=== PATIENT | male | born 1970 | race Caucasian/White ===

== ENCOUNTER 2016-11-27 08:38 | Emergency (ER) | payer OTHER ==
[2016-11-27 09:51] LABS: Basophils % (Auto) 0.3 % (0.0-1.8); Eosinophils % (Auto) 0.3 % (0.0-4.3); Hematocrit 41.1 % (35.5-45.6); Hemoglobin 13.7 gm/dl (11.8-15.2); Mean Corpuscular HGB Conc 33 % (32-34); Mean Corpuscular Hemoglobin 31 pg (28-32); Mean Corpuscular Volume 94 fl (84-94); Platelet Count 167 K/mm3 (140-440); Red Cell Distribution Width 13.2 % (13.2-15.2)
[2016-11-27 09:55] LABS: Alanine Aminotransferase 62 units/L (7-56); Albumin 4.6 g/dL (3.9-5); Albumin/Globulin Ratio 1.7 %; Alkaline Phosphatase 76 units/L (35-129); Anion Gap 18 mmol/L; BUN/Creatinine Ratio 18.57; Blood Urea Nitrogen 13 mg/dL (9-20); Calcium 8.8 mg/dL (8.4-10.2); Carbon Dioxide 24 mmol/L (22-30); Chloride 103.6 mmol/L (98-107); Glucose 143 mg/dL (75-100); Lipase 24 units/L (13-60); Potassium 3.7 mmol/L (3.6-5.0); Sodium 142 mmol/L (137-145); Total Protein 7.3 g/dL (6.3-8.2)
[2016-11-27] MEDS ORDERED: TORADOL IV ONE (10:02)
[2016-11-27] MEDS ORDERED: ZOFRAN IV ONE (10:02)
[2016-11-27] MEDS ORDERED: NACL 0.9% 1000 ML 1,000 ML IV ONE (10:02)
[2016-11-27] MEDS ORDERED: DILAUDID IV ONE (10:02)
--- NOTE | 2016-11-27 10:03 | Emergency Department Report ---
ED Abdominal Pain HPI - General Chief Complaint: Abdominal Pain Stated Complaint: POSS APPENDIX Time Seen by Provider: 11/27/16 10:01 Source: family Mode of arrival: Ambulatory Limitations: Language Barrier - History of Present Illness MD Complaint: abdominal pain, flank pain -: Sudden Location: RLQ Radiation: none Migration to: no migration Severity: moderate Severity scale (0 -10): 10 Quality: stabbing, aching Consistency: constant Improves With: nothing Worsens With: nothing Associated Symptoms: nausea. denies: vomiting, diarrhea, fever, chills, constipation, dysuria, hematemesis, hematochezia, melena, hematuria, anorexia, syncope - Related Data Previous Rx's Medication Instructions Recorded Last Taken Type HYDROcodone/APAP 10-325 [[place] 1 each PO BID #20 tablet 11/27/16 Unknown Rx 10/325] Sulfamethoxazole/Trimethoprim 1 each PO BID #14 tablet 11/27/16 Unknown Rx [Bactrim DS TAB] Allergies Allergy/AdvReac Type Severity Reaction Status Date / Time No Known Allergies Allergy Verified 11/27/16 09:04 ED Review of Systems ROS: Stated complaint: POSS APPENDIX Other details as noted in HPI Comment: All other systems reviewed and negative ED Past Medical Hx - Past Medical History Previous Medical History?: No - Surgical History Past Surgical History?: No - Social History Smoking Status: Never Smoker Substance Use Type: None - Medications Home Medications: Home Medications Medication Instructions Recorded Confirmed Last Taken Type HYDROcodone/APAP 10-325 [[place] 1 each PO BID #20 tablet 11/27/16 Unknown Rx 10/325] Sulfamethoxazole/Trimethoprim 1 each PO BID #14 tablet 11/27/16 Unknown Rx [Bactrim DS TAB] ED Physical Exam - General Limitations: Language Barrier General appearance: alert, in no apparent distress - Head Head exam: Present: atraumatic, normocephalic - Eye Eye exam: Present: normal appearance, PERRL - ENT ENT exam: Present: normal exam, normal orophraynx, mucous membranes moist - Neck Neck exam: Present: normal inspection - Respiratory Respiratory exam: Present: normal lung sounds bilaterally. Absent: respiratory distress - Cardiovascular Cardiovascular Exam: Present: regular rate, normal rhythm. Absent: systolic murmur, diastolic murmur, rubs, gallop - GI/Abdominal GI/Abdominal exam: Present: soft, tenderness, normal bowel sounds. Absent: distended, guarding, rebound, rigid - Rectal Rectal exam: Present: deferred - Extremities Exam Extremities exam: Present: normal inspection - Back Exam Back exam: Present: normal inspection - Neurological Exam Neurological exam: Present: alert, oriented X3 - Psychiatric Psychiatric exam: Present: normal affect, normal mood - Skin Skin exam: Present: warm, dry, intact, normal color. Absent: rash ED Course Vital Signs 11/27/16 11/27/16 11/27/16 09:05 09:45 09:50 Temperature 98.8 F Pulse Rate 91 H Respiratory 24 Rate Blood Pressure 136/72 Blood Pressure 146/101 [Right] O2 Sat by Pulse 100 99 100 Oximetry 11/27/16 11/27/16 11/27/16 10:00 10:15 10:30 Temperature Pulse Rate Respiratory 20 20 Rate Blood Pressure 136/72 134/82 Blood Pressure [Right] O2 Sat by Pulse 97 99 95 Oximetry 11/27/16 11:00 Temperature Pulse Rate Respiratory 18 Rate Blood Pressure Blood Pressure [Right] O2 Sat by Pulse Oximetry ED Medical Decision Making - Lab Data Result diagrams: 11/27/16 09:25 11/27/16 09:25 - Radiology Data Radiology results: report reviewed, image reviewed - Medical Decision Making patient doing well, pain is controlled , will treat for pain and abx for slight uti, will dc and follow up as needed Critical care attestation.: If time is entered above; I have spent that time in minutes in the direct care of this critically ill patient, excluding procedure time. ED Disposition Clinical Impression: Kidney stone Disposition: DC-01 TO HOME OR SELFCARE Is pt being admited?: No Does the pt Need Aspirin: No Condition: Good Instructions: Kidney Stones (ED) Prescriptions: HYDROcodone/APAP 10-325 [[place] 10/325] 1 each PO BID #20 tablet Sulfamethoxazole/Trimethoprim [Bactrim DS TAB] 1 each PO BID #14 tablet Referrals: PRIMARY CARE, [Primary Care Provider] - 3-5 Days Time of Disposition: 11:48
--- NOTE | 2016-11-27 11:00 | Cat Scan Report ---
CT OF THE ABDOMEN AND PELVIS WITHOUT CONTRAST HISTORY: Abdominal pain. TECHNIQUE: Helical CT without contrast. Sagittal and coronal reformatted images. FINDINGS: A 3 x 4 x 4 mm stone is identified in the distal right ureter just before the right UVJ. There is mild right hydronephrosis and right perinephric stranding. 2 mm nonobstructing calyceal stone in the mid left kidney is also noted. No left ureteral stones. Within the limits of a noncontrast exam, the abdominal and pelvic viscera are within normal limits. The liver, biliary system, pancreas, spleen, adrenal glands and bladder are unremarkable. The bowel loops are normal caliber and wall thickness. Normal appendix. The aorta is normal caliber. No ascites, bulky adenopathy or inflammatory changes. The lung bases are clear. Normal heart size. No suspicious bony lesion. IMPRESSION: Distal right ureteral stone, mildly obstructing. Nonobstructing left renal stone. See above.
[2016-11-27 11:02] LABS: Bilirubin,Urine NEG (Negative); Blood,Urine LG (Negative); Ketones,Urine NEG (Negative); Leukocyte Esterase,Urine NEG (Negative); Mucus,Urine 1+ /HPF; Nitrite,Urine NEG (Negative); Protein,Urine <15 mg/dL mg/dL (Negative); Urobilinogen,Urine < 2.0 mg/dL (<2.0)
[2016-11-27 11:03] LABS: RBC,Urine < 1.0 /HPF (0.0-6.0)
[2016-11-27 11:04] VITALS: BP 134/82
== END 2016-11-27 12:05 | disposition home or self-care (01) ==
LOC: ED 08:38
DX: N20.0 Calculus of kidney (principal)
CPT/HCPCS: 36415; 74176; 80053; 81001; 83690; 85025; 96361; 96374; 96375; 99284; J1170; J1885; J2405; J7030